=== PATIENT | female | born 1960 | race Hispanic/Latino ===

== ENCOUNTER 2017-06-15 09:49 | Outpatient (CLI) | payer BC ==
--- NOTE | 2017-06-15 12:50 | RAD ---
SINGLE CONTRAST UPPER GI: Clinical history: Status post gastric sleeve procedure with clinical concern for gastric stenosis. R ecurrent nausea. FINDINGS: Passage of liquid barium through the esophagus. Tertiary esophageal contractions are present. No hig h grade esophageal stricture or intrinsic mass effect. There is evidence of post-operative findings of gastric sleeve procedure with a diffusely narrowed remnant gastric lumen in keeping with the prov ided surgical history. Contrast does traverse the post-operative gastric lumen into the nondilated p roximal small bowel. IMPRESSION: 1. Post-operative single contrast upper GI reveals contrast passage through the remnant gastric lume n status post gastric sleeve procedure. Contrast does opacify nondilated proximal small bowel. 2. Tertiary esophageal contractions. POS: NOE
== END 2017-06-15 09:50 | disposition home or self-care (01) ==
LOC: RAD 09:49
PROVIDERS: ATTEND Surgery
DX: K31.2 Hourglass stricture and stenosis of stomach (principal); K22.4 Dyskinesia of esophagus; Z98.84 Bariatric surgery status
CPT/HCPCS: 74247